=== PATIENT | female | born 1995 | race Caucasian/White ===

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

== ENCOUNTER 2017-01-05 12:06 | Emergency (ER) | payer OTHER ==
[~2017-01-05] VITALS: Ht 172.7 cm; Wt 85.3 kg
[2017-01-05 12:07] VITALS: BP 123/63
[2017-01-05] MEDS ORDERED: OMEP40CA2 PO (12:14)
[2017-01-05] MEDS ORDERED: ONDANSETRON 4 MG ORAL DISINTEGRATING TAB (S0181) PO ONE (13:45)
== END 2017-01-05 14:09 | disposition home or self-care (01) ==
LOC: M ED 12:06
DX: R11.2 Nausea with vomiting, unspecified (principal); J45.909 Unspecified asthma, uncomplicated; F41.9 Anxiety disorder, unspecified; F32.9 Major depressive disorder, single episode, unspecified; E28.2 Polycystic ovarian syndrome; F90.9 Attention-deficit hyperactivity disorder, unspecified type; F17.200 Nicotine dependence, unspecified, uncomplicated; Z79.899 Other long term (current) drug therapy

== ENCOUNTER 2017-02-10 08:39 | Emergency (ER) | payer OTHER ==
[~2017-02-10] VITALS: Ht 172.7 cm; Wt 84.1 kg
[~2017-02-10 08:39] MED LIST changes: +OMEP40CA2 PO
[2017-02-10 09:40] LABS: CONTROL LINE UCG INT CTR LINE PRESENT
[2017-02-10] MEDS ORDERED: ONDANSETRON 4MG/2ML VIAL (J2405) IV ONE (10:30)
[2017-02-10 10:31] LABS: BASO % 0.4 % (0.0-1.0); EOS # 0.3 K/mm3 (0.0-0.50); EOS % 2.8 % (0.0-3.0); LARGE UNSTAINED CELL # 0.1 K/mm3 (0.0-0.4); LARGE UNSTAINED CELL % 1.4 % (0.0-4.0); LYMPH # 1.8 K/mm3 (1.5-6.5); MEAN CORPUSCULAR HEMOGLOBIN 28.6 pg (27.0-33.0); MEAN CORPUSCULAR HGB CONC 34.2 g/dl (32.0-36.5); MEAN CORPUSCULAR VOLUME 83.6 fl (80.0-96.0); MONO # 0.6 K/mm3 (0.0-0.8); MONO % 5.7 % (0.0-5.0); NEUTROPHILS % 71.7 % (36.0-66.0); PLATELET COUNT, AUTOMATED 247 k/mm3 (150-450); RED CELL DISTRIBUTION WIDTH 14.2 % (11.5-14.5); WHITE BLOOD COUNT 9.7 K/mm3 (4.0-10.0)
[2017-02-10 10:49] LABS: ALBUMIN 3.6 GM/DL (3.2-5.2); ALKALINE PHOSPHATASE 105 U/L (45-117); ALT/SGPT 34 U/L (12-78); ANION GAP 11 MEQ/L (8-16); AST/SGOT 19 U/L (15-37); BILIRUBIN,TOTAL 0.7 MG/DL (0.2-1.0); BLOOD UREA NITROGEN 7 MG/DL (7-18); CARBON DIOXIDE LEVEL 24 MEQ/L (21-32); CHLORIDE LEVEL 105 MEQ/L (98-107); CREATININE FOR GFR 0.68 MG/DL (0.55-1.02); GLUCOSE, FASTING 85 MG/DL (70-105); POTASSIUM SERUM 3.8 MEQ/L (3.5-5.1); SODIUM LEVEL 140 MEQ/L (136-145); TOTAL PROTEIN 8.1 GM/DL (6.4-8.2)
[2017-02-10] MEDS ORDERED: ISOVUE-370 76% 100ML VIAL (Q9967) As Ordered ONE (10:53)
--- NOTE | 2017-02-10 11:46 | REP ---
Clinical: Right lower quadrant pain. Technique: Axial contrast enhanced images from the lung bases to the pubic symphysis using 100 ml Isovue 370 intravenous contrast material with coronal and sagittal re-formations. Comparison: 12/25/2016. Findings: Lung bases are clear. Visualized heart and pericardium normal. Liver, spleen, pancreas, gallbladder, bilateral adrenal glands and kidneys are normal. The enteric system is without obstruction or acute inflammatory process. Normal terminal ileum and appendix are identified in the right lower quadrant. Few mildly prominent lymph nodes in the right lower quadrant/pericecal region are nonspecific but may reflect mesenteric adenitis. Pelvis demonstrates normal bladder and uterus/adnexa. Small amount of free fluid is nonspecific and possibly physiologic. No free air. No retroperitoneal adenopathy. No mass lesion. Vasculature appears normal. Musculoskeletal structures are intact. Impression: 1. Few prominent lymph nodes in the right lower quadrant/pericecal region may reflect mesenteric adenitis. 2. Small amount of free fluid in the pelvis is nonspecific and possibly physiologic/related to menstrual cycle. 3. No further acute abdominopelvic pathology appreciated. Normal terminal ileum and appendix identified in the right lower quadrant. Signed by Carlos Vanegas MD 02/10/2017 11:38 A
[2017-02-10] MEDS ORDERED: CIPR-249 PO (12:04)
[2017-02-10 12:15] VITALS: BP 141/89
--- NOTE | 2017-02-10 21:15 | ECGEPIP ---
Stationary ECG Study [facility] - ED Test Date: 2017-02-10 Pat Name: CINDA MORRISON Department: Room: - Gender: F Esc[employer] Blind: : 1995 Requested By: Meng Pagan Order Number: [id number] Reading MD: Lisa Calix Measurements Intervals [place] Rate: 74 P: 28 OK: 128 QRS: 52 QRSD: 90 T: 43 QT: 390 QTc: 433 Interpretive Statements SINUS RHYTHM NO PRIOR FOR COMPARISON Electronically Signed On 02-10-2017 21:15:05 EDT by Lisa Calix
== END 2017-02-10 12:17 | disposition home or self-care (01) ==
LOC: M ED 08:39
DX: R55 Syncope and collapse (principal); N75.0 Cyst of Bartholin's gland
CPT/HCPCS: 74177; 80053; 81001; 83690; 84703; 85025; 87491; 87591; 93005; 96374; 99284; J2405; Q9967

== ENCOUNTER 2017-05-11 20:30 | Emergency (ER) | payer OTHER ==
[~2017-05-11] VITALS: Ht 172.7 cm; Wt 77.6 kg
[2017-05-11] MEDS ORDERED: BUTALB-ACETAMIN-CAFF (20:41)
[2017-05-11 21:37] LABS: MEAN CORPUSCULAR HEMOGLOBIN 28.3 pg (27.0-33.0); MEAN CORPUSCULAR HGB CONC 34.2 g/dl (32.0-36.5); MEAN CORPUSCULAR VOLUME 82.9 fl (80.0-96.0); PLATELET COUNT, AUTOMATED 235 10^3/uL (150-450); RED CELL DISTRIBUTION WIDTH 13.7 % (11.5-14.5); WHITE BLOOD COUNT 7.2 10^3/uL (4.0-10.0)
[2017-05-11 21:56] LABS: CONTROL LINE HCG INT CTR LINE PRESENT
[2017-05-11 22:06] LABS: ALBUMIN 3.6 GM/DL (3.2-5.2); ALKALINE PHOSPHATASE 85 U/L (45-117); ALT/SGPT 20 U/L (12-78); ANION GAP 8 MEQ/L (8-16); AST/SGOT 12 U/L (7-37); BILIRUBIN,DIRECT 0.1 MG/DL (0.0-0.2); BILIRUBIN,TOTAL 0.6 MG/DL (0.2-1.0); BLOOD UREA NITROGEN 6 MG/DL (7-18); CALCIUM LEVEL 8.7 MG/DL (8.5-10.1); CARBON DIOXIDE LEVEL 28 MEQ/L (21-32); CHLORIDE LEVEL 106 MEQ/L (98-107); CREATININE FOR GFR 0.63 MG/DL (0.55-1.02); GLUCOSE, FASTING 82 MG/DL (70-105); POTASSIUM SERUM 3.2 MEQ/L (3.5-5.1); SODIUM LEVEL 142 MEQ/L (136-145); TOTAL PROTEIN 7.2 GM/DL (6.4-8.2)
[2017-05-12 00:08] LABS: METHADONE URINE NEGATIVE (NEGATIVE)
[2017-05-12] MEDS ORDERED: ALBUTEROL SULFATE 2.5 MG/0.5 ML INH NEB SOLN INH ONE (04:00)
[2017-05-12] MEDS ORDERED: NICOTINE 21MG/24HR 1 EA TRANSDERMAL TD ONE (07:45)
[2017-05-12 09:10] VITALS: BP 98/61
--- NOTE | 2017-05-12 12:32 | ECGEPIP ---
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
== END 2017-05-12 09:16 | disposition short-term general hospital (02) ==
LOC: M ED 20:30
DX: R45.851 Suicidal ideations (principal); F32.9 Major depressive disorder, single episode, unspecified; J45.909 Unspecified asthma, uncomplicated; K21.9 Gastro-esophageal reflux disease without esophagitis; F17.200 Nicotine dependence, unspecified, uncomplicated; Z79.899 Other long term (current) drug therapy
CPT/HCPCS: 80048; 80076; 80307; 84443; 84703; 85027; 93005; 94640; 99285; G0480

== ENCOUNTER 2017-06-21 14:14 | Emergency (ER) | payer OTHER ==
[2017-06-21] MEDS: METOCLOPRAMIDE INJ 10MG/2ML VIAL (J2765) IV (17:30)
[2017-06-21] MEDS: KETOROLAC 30 MG/ML VIAL (J1885) IV (17:50)
[2017-06-21] MEDS: ONDANSETRON 4MG/2ML VIAL (J2405) IV (17:53)
== END 2017-06-21 19:12 | disposition home or self-care (01) ==
LOC: M ED 14:14
DX: G43.109 Migraine with aura, not intractable, without status migrainosus (principal); J45.909 Unspecified asthma, uncomplicated; F41.9 Anxiety disorder, unspecified; F31.9 Bipolar disorder, unspecified; E28.2 Polycystic ovarian syndrome; F17.210 Nicotine dependence, cigarettes, uncomplicated; Z79.899 Other long term (current) drug therapy
CPT/HCPCS: J2405